=== PATIENT | male | born 1980 | race Caucasian/White ===

== ENCOUNTER 2016-12-20 00:16 | Emergency (ER) | payer MEDICAID ==
[2016-12-20] MEDS ORDERED: PSEUDOEPHEDRINE 30 MG TABLET PO STA (00:37)
[2016-12-20] MEDS ORDERED: DEXAMETHASONE 10 MG/ML VIAL PO STA (00:37)
[2016-12-20] MEDS ORDERED: ACETAMINOPHEN 500 MG TABLET PO STA (00:37)
[2016-12-20] MEDS ORDERED: PSEUDOEPHEDRINE 30 MG TABLET PO ONE (00:42)
[2016-12-20] MEDS ORDERED: DEXAMETHASONE 10 MG/ML VIAL ONE (00:42)
[2016-12-20] MEDS ORDERED: ACETAMINOPHEN 500 MG TABLET PO ONE (00:42)
[2016-12-20] MEDS ORDERED: CHERRY SYRUP 10 ML UDC PO ONE (00:42)
== END 2016-12-20 00:57 | disposition home or self-care (01) ==
DX: J06.9 Acute upper respiratory infection, unspecified (principal)
CPT/HCPCS: 99283; A9270

== ENCOUNTER 2018-01-20 22:43 | Emergency (ER) | payer MEDICAID ==
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
--- NOTE | 2018-01-21 03:20 | XRAY Preliminary Report ---
Exam: XR HIP W/PELVIS 2-3V RT IMPRESSION: Normal pelvis and hip radiography. [facility] SITE ID: [id number]
--- NOTE | 2018-01-21 03:21 | XRAY Report ---
EXAM: RIGHT HIP AND PELVIS RADIOGRAPHY EXAM DATE: 01/21/2018 03:03 AM. HISTORY: Injury, pain. COMPARISONS: None. TECHNIQUE: 1 view of the pelvis and 1 view of the hip. FINDINGS: Bones: Normal. No fracture or bone lesion. Joints: The bilateral hip, pubis symphysis, and sacroiliac joints are preserved. Soft Tissues: Normal. No soft tissue swelling. IMPRESSION: Normal pelvis and hip radiography. [facility] Referring Provider Line: [phone] SITE ID: [id number]
[2018-01-21] MEDS ORDERED: oxyCOD/ACETAMIN 5 MG/325 MG TABLET PO STA (04:36)
[2018-01-21] MEDS ORDERED: CYCLOBENZAPRINE 10 MG TABLET PO STA (04:38)
[2018-01-21 04:58] VITALS: BP 136/70
== END 2018-01-21 04:53 | disposition home or self-care (01) ==
LOC: ED 22:43
DX: S33.5XXA Sprain of ligaments of lumbar spine, initial encounter (principal); W50.0XXA Accidental hit or strike by another person, initial encounter; J45.909 Unspecified asthma, uncomplicated
CPT/HCPCS: 73502; 99283; A9270

== ENCOUNTER 2018-02-11 20:55 | Emergency (ER) | payer MEDICAID ==
[2018-02-12] MEDS ORDERED: DEXAMETHASONE 10 MG/ML VIAL PO STA (00:21)
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
[2018-02-12 00:49] VITALS: BP 116/77
== END 2018-02-12 00:45 | disposition home or self-care (01) ==
LOC: ED 20:55
DX: M62.830 Muscle spasm of back (principal); V49.40XA Driver injured in collision with unspecified motor vehicles in traffic accident, initial encounter; Z88.8 Allergy status to other drugs, medicaments and biological substances
CPT/HCPCS: 99283

== ENCOUNTER 2019-01-05 18:47 | Emergency (ER) | payer MEDICAID ==
[2019-01-05] MEDS ORDERED: ONDANSETRON 4 MG/2 ML VIAL IVP STA (19:17)
[2019-01-05] MEDS ORDERED: HYDROmorphone 1 MG/ML CARPUJECT IVP STA (19:17)
[2019-01-05] MEDS ORDERED: SODIUM CHLORIDE 0.9% 1,000 ML IV ONE (19:17)
--- NOTE | 2019-01-05 19:18 | ED Physician Documentation ---
PD HPI HEADACHE - Stated complaint Stated Complaint: VOMITING BLOOD - Chief complaint Chief Complaint: Back Pain - History obtained from History obtained from: Patient - History of Present Illness Timing - onset: Today (This is a relatively healthy 38-year-old gentleman with history of back pain. He was in physical therapy today, they just worked on his back, not his neck or head. He had gradual onset right-sided headache after that associated with vomiting and had some blood in the vomit this evening. It was just specks of blood. It is not the worst headache of his life but it is atypical for prior migraines.) Review of Systems Constitutional: denies: Fever, Chills Throat: reports: Reviewed and negative Cardiac: reports: Reviewed and negative Respiratory: reports: Reviewed and negative PD PAST MEDICAL HISTORY - Past Medical History Cardiovascular: None Respiratory: Asthma Endocrine/Autoimmune: None GI: None : None HEENT: None Psych: None Musculoskeletal: None Derm: None - Past Surgical History Past Surgical History: Yes General: Appendectomy - Present Medications Home Medications: Ambulatory Orders Medication Instructions Recorded Confirmed Hydrocodone/Acetaminophen [Vicodin 1 each PO 02/11/18 5-300 mg Tablet] Methocarbamol 750 mg PO 02/11/18 Lidocaine Patch 5% [Lidoderm Patch] 1 each TOP DAILY #14 patch 02/12/18 predniSONE [Prednisone] 40 mg PO DAILY 5 Days tablet 02/12/18 - Allergies Allergies/Adverse Reactions: Allergies Allergy/AdvReac Type Severity Reaction Status Date / Time aspirin Allergy Anaphylaxis Verified 02/11/18 21:04 NSAIDS (Non-Steroidal Allergy Anaphylaxis Verified 02/11/18 21:04 Anti-Inflamma - Social History Does the pt smoke?: No Smoking Status: Never smoker Does the pt drink ETOH?: Yes Does the pt have substance abuse?: No - Immunizations Immunizations are current?: Yes - POLST Patient has POLST: No PD ED PE NORMAL - Vitals Vital signs reviewed: Yes - General General: Alert and oriented X 3, Other (Appears uncomfortable, not actively retching) - HEENT HEENT: PERRL, EOMI - Neck Neck: Supple, no meningeal sign, No bony TTP - Cardiac Cardiac: RRR, No murmur - Respiratory Respiratory: No respiratory distress, Clear bilaterally - Abdomen Abdomen: Normal bowel sounds, Soft, Non tender - Back Back: No CVA TTP, No spinal TTP - Derm Derm: Normal color, Warm and dry - Extremities Extremities: No edema, No calf tenderness / cord - Neuro Neuro: Alert and oriented X 3, Normal speech Results - Vitals Vitals: Vital Signs - 24 hr 01/05/19 01/05/19 18:52 20:52 Temperature 36.6 C 36.9 C Heart Rate 99 88 Respiratory 18 16 Rate Blood Pressure 117/82 H 127/85 H O2 Saturation 100 98 Oxygen O2 Source Room air - Labs Labs: Laboratory Tests 01/05/19 01/05/19 01/05/19 19:28 19:28 19:28 WBC 13.4 H RBC 5.20 Hgb 15.0 Hct 44.1 MCV 84.8 MCH 28.8 MCHC 34.0 RDW 13.1 Plt Count 301 MPV 8.3 Neut # (Auto) 10.9 H Lymph # (Auto) 1.6 Boyle # (Auto) 0.6 Eos # (Auto) 0.1 Baso # (Auto) 0.1 Absolute Nucleated RBC 0.00 Nucleated RBC % 0.0 PT 13.2 H INR 1.2 Sodium 149 H Potassium 3.7 Chloride 98 L Carbon Dioxide 28 Anion Gap 23.0 H BUN 18 Creatinine 1.0 Estimated GFR (MDRD) 84 L Glucose 101 H Calcium 10.8 H Total Bilirubin 0.9 AST 23 ALT 22 Alkaline Phosphatase 76 Total Protein 8.3 H Albumin 5.4 Globulin 2.9 Albumin/Globulin Ratio 1.9 Lipase 24 - Rads (name of study) CTH and CTA Head/neck Radiology: EMP read contemporaneously (normal) PD MEDICAL DECISION MAKING - ED course ED course: This is a 38-year-old gentleman with history of migraines and chronic back pain he presents with a new gradual onset but otherwise atypical right-sided headache with vomiting after physical therapy. Vascular issues considered but ruled out with CT angiography imaging and after medications here he was feeling much better. Departure - Departure Disposition: 01 Home, Self Care Clinical Impression: Headache Qualifiers: Headache type: unspecified Headache chronicity pattern: acute headache Intractability: not intractable Qualified Code(s): R51 - Headache Condition: Good Record reviewed to determine appropriate education?: Yes Instructions: ED Cephalgia Unspecified Comments: Call your doctor to arrange a follow-up appointment, make the next available appointment. In the interim, return anytime if worse or if new symptoms develop. Your blood pressure was elevated today on check into the emergency department. This does not mean that you have hypertension, it is a common phenomenon to come to the emergency department and have elevated blood pressure. I recommend that you see your primary care physician within the week to have it rechecked when you are feeling better.
[2019-01-05] MEDS ORDERED: IOVERSOL 320 100 ML VIAL IVP ONE ×2 (19:29→19:55)
[2019-01-05 19:34] LABS: BASOPHILS # (AUTO) 0.1 10^3/uL (0.0-0.1); BASOPHILS % (AUTO) 0.7 %; EOSINOPHILS # (AUTO) 0.1 10^3/uL (0.0-0.7); EOSINOPHILS % (AUTO) 0.8 %; LYMPHOCYTES # (AUTO) 1.6 10^3/uL (1.5-3.5); LYMPHOCYTES % (AUTO) 12.3 %; MEAN CORPUSCULAR HEMOGLOBIN 28.8 pg (27.0-31.0); MEAN CORPUSCULAR VOLUME 84.8 fL (80.0-94.0); MEAN PLATELET VOLUME 8.3 fL (7.4-11.4); MONOCYTES # (AUTO) 0.6 10^3/uL (0.0-1.0); MONOCYTES % (AUTO) 4.4 %; NEUTROPHILS # (AUTO) 10.9 10^3/uL (1.5-6.6); NEUTROPHILS % (AUTO) 81.8 %; PLT - PLATELET COUNT 301 10^3/uL (130-450); RED CELL DISTRIBUTION WIDTH 13.1 % (12.0-15.0); WHITE BLOOD COUNT 13.4 x10^3/uL (4.8-10.8)
[2019-01-05 19:40] LABS: INR 1.2 (0.8-1.2); PT - PROTHROMBIN TIME 13.2 secs (9.9-12.6)
[2019-01-05 20:09] LABS: ALBUMIN 5.4 g/dL (3.2-5.5); ALBUMIN/GLOBULIN RATIO 1.9 (1.0-2.2); BILIRUBIN,TOTAL 0.9 mg/dL (0.2-1.0); CALCIUM 10.8 mg/dL (8.5-10.3); TOTAL PROTEIN 8.3 g/dL (6.7-8.2)
[2019-01-05] MEDS ORDERED: DEXAMETHASONE 10 MG/ML VIAL IVP STA (20:21)
[2019-01-05] MEDS ORDERED: METOCLOPRAMIDE 10 MG/2 ML VIAL IVP STA (20:21)
--- NOTE | 2019-01-05 20:34 | CT Report ---
Reason: headache Procedure Date: 01/05/2019 Accession Number: [id number] / [id number] Procedure: CT - HEAD WO CPT Code: FULL RESULT: EXAM: CT HEAD EXAM DATE: 01/05/2019 07:52 PM. CLINICAL HISTORY: Headache. Left facial droop. COMPARISON: None. TECHNIQUE: Multiaxial CT images were obtained from the foramen magnum to the vertex. Reformats: Coronal. IV contrast: None. In accordance with CT protocol optimization, one or more of the following dose reduction techniques were utilized for this exam: automated exposure control, adjustment of mA and/or KV based on patient size, or use of iterative reconstructive technique. FINDINGS: Normal CT appearance of the brain. No evidence for hemorrhage, infarct, atrophy or hydrocephalus. Intact calvarium. Maxillary sinus mucosal thickening with retention cyst on the right. Clear mastoids. IMPRESSION: No CT evidence for acute intracranial abnormality. [facility]
--- NOTE | 2019-01-05 20:38 | CT Report ---
Reason: headache Procedure Date: 01/05/2019 Accession Number: [id number] / [id number] Procedure: CT - ANGIO NECK W/WO CPT Code: FULL RESULT: EXAM: CT ANGIOGRAM NECK EXAM DATE: 01/05/2019 07:52 PM. CLINICAL HISTORY: Headache and facial droop. COMPARISON: None. TECHNIQUE: Routine axial helical imaging was performed from the skull base through the aortic arch. Reconstructions: Routine multiplanar 3D MIP reconstructions. IV Contrast: 80 mL Optiray 320. Evaluation of arterial stenosis is based on a NASCET method of measurement. In accordance with CT protocol optimization, one or more of the following dose reduction techniques were utilized for this exam: automated exposure control, adjustment of mA and/or KV based on patient size, or use of iterative reconstructive technique. FINDINGS: The top of the aortic arch and the origins of the great vessels have an unremarkable appearance. Normal CTA appearance of the cervical vertebral and carotid arteries, no acute abnormality or stenosis. IMPRESSION: Normal neck CT angiogram. No hemodynamically significant stenoses. [facility]
--- NOTE | 2019-01-05 20:43 | CT Report ---
Reason: L sided facial droop Procedure Date: 01/05/2019 Accession Number: [id number] / [id number] Procedure: CT - ANGIO HEAD W CPT Code: FULL RESULT: EXAM: CT ANGIOGRAM HEAD. CT SCAN OF THE HEAD WITH CONTRAST. EXAM DATE: 01/05/2019 07:52 PM CLINICAL HISTORY: Headache and left facial droop. COMPARISON: Neck angiogram 01/05/2019 7:46 PM. TECHNIQUE: - CT Scan Head: Using a multidetector scanner, axial images were acquired from the foramen magnum to the skull vertex following contrast administration. - CT Angiogram: Using a multidetector scanner, high-resolution axial images were acquired from the skull base through vertex following rapid infusion of intravenous contrast. Reformats: Multiplanar MIP reformats were reconstructed. Nascet criteria used for stenosis measurement. IV Contrast: 80 mL Optiray-320. In accordance with CT protocol optimization, one or more of the following dose reduction techniques were utilized for this exam: automated exposure control, adjustment of mA and/or KV based on patient size, or use of iterative reconstructive technique. FINDINGS: Brain CT with IV contrast: No abnormal brain enhancement. Head CT angiogram: No intracranial vertebrobasilar insufficiency. Probable origin of the right REFUSE DRIVER. Well-developed left posterior communicating artery. Patent anterior communicating artery. 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 No proximal flow limiting stenosis, occlusion or filling defect of the main segments of the anterior, middle or posterior cerebral arteries. No evidence for major dural venous sinus thrombus or aneurysm of the [place] of [place]. IMPRESSION: Negative head CTA, no evidence for aneurysm or stenosis. No large vessel occlusion. Note that this does not preclude the possibility of a small or acute ischemic infarct for which a brain MRI would be more sensitive. [facility]
[2019-01-05 21:56] VITALS: BP 134/81
== END 2019-01-05 22:05 | disposition home or self-care (01) ==
LOC: ED 18:47
DX: R51 Headache (principal); R11.10 Vomiting, unspecified; R03.0 Elevated blood-pressure reading, without diagnosis of hypertension; M54.9 Dorsalgia, unspecified; G89.29 Other chronic pain
CPT/HCPCS: 36415; 70450; 70496; 70498; 80053; 83690; 85025; 85610; 96361; 96374; 96375; 99283; J1170; J2765; Q9967

== ENCOUNTER 2020-02-28 19:20 | Outpatient (CLI) | payer MEDICAID | END 2020-02-28 19:21 | disposition home or self-care (01) | LOC: COV 19:20 | PROVIDERS: ATTEND Family Medicine | DX: R50.9 Fever, unspecified (principal); R05 Cough; R06.02 Shortness of breath; R06.2 Wheezing; J02.9 Acute pharyngitis, unspecified | CPT/HCPCS: 81599 ==

== ENCOUNTER 2021-01-10 07:34 | Outpatient (CLI) | payer MEDICAID ==
[2021-01-10 08:14] LABS: BASOPHILS # (AUTO) 0.1 10^3/uL (0.0-0.1); BASOPHILS % (AUTO) 0.5 %; EOSINOPHILS # (AUTO) 0.4 10^3/uL (0.0-0.7); EOSINOPHILS % (AUTO) 4.6 %; HCT - HEMATOCRIT 45.6 % (42.0-52.0); HGB - HEMOGLOBIN 15.7 g/dL (14.0-18.0); LYMPHOCYTES # (AUTO) 3.1 10^3/uL (1.5-3.5); LYMPHOCYTES % (AUTO) 33.2 %; MEAN CORPUSCULAR HEMOGLOBIN 29.5 pg (27.0-31.0); MEAN CORPUSCULAR HGB CONC 34.4 g/dL (32.0-36.0); MEAN CORPUSCULAR VOLUME 85.7 fL (80.0-94.0); MONOCYTES # (AUTO) 0.7 10^3/uL (0.0-1.0); NEUTROPHILS # (AUTO) 4.9 10^3/uL (1.5-6.6); NEUTROPHILS % (AUTO) 53.4 %; PLT - PLATELET COUNT 279 10^3/uL (130-450); RED BLOOD COUNT 5.32 10^6/uL (4.70-6.10); RED CELL DISTRIBUTION WIDTH 11.9 % (12.0-15.0); WHITE BLOOD COUNT 9.3 x10^3/uL (4.8-10.8)
[2021-01-10 08:32] LABS: ALBUMIN 4.7 g/dL (3.2-5.5); ALBUMIN/GLOBULIN RATIO 1.6 (1.0-2.2); ALKALINE PHOSPHATASE 88 IU/L (42-121); ALT ALANINE AMINOTRANSFERASE 36 IU/L (10-60); AST ASPARTATE AMINOTRANSFERASE 29 IU/L (10-42); BILIRUBIN,TOTAL 0.4 mg/dL (0.2-1.0); BUN - BLOOD UREA NITROGEN 17 mg/dL (6-20); CALCIUM 10.4 mg/dL (8.5-10.3); CARBON DIOXIDE - CO2 27 mmol/L (21-32); CHLORIDE 103 mmol/L (101-111); CHOL/HDL RATIO 9.1 (<5.0); CHOLESTEROL 273 mg/dL; GFR - MDRD 83 (>89); GLUCOSE 107 mg/dL (70-100); HDL CHOLESTEROL 30 mg/dL; LDL CHOLESTEROL,CALCULATED 193 mg/dL; LDL/HDL RATIO 6.4 (<3.6); POTASSIUM 4.2 mmol/L (3.5-5.0); SODIUM 140 mmol/L (135-145); TOTAL PROTEIN 7.6 g/dL (6.7-8.2); TRIGLYCERIDES 251 mg/dL; VLDL CHOLESTEROL 50 mg/dL
[2021-01-10 09:18] LABS: THYROID STIMULATING HORMONE 1.11 uIU/mL (0.34-5.60)
== END 2021-01-10 07:35 | disposition home or self-care (01) ==
LOC: LAB 07:34
PROVIDERS: ATTEND Physician Assistant
DX: F41.1 Generalized anxiety disorder (principal); F07.81 Postconcussional syndrome; Z79.899 Other long term (current) drug therapy
CPT/HCPCS: 36415; 80053; 80061; 83721; 84443; 85025

== ENCOUNTER 2021-06-05 08:00 | Outpatient (CLI) | payer MEDICAID | END 2021-06-05 23:59 | disposition home or self-care (01) | LOC: LAB.S 08:00 | PROVIDERS: ATTEND Physician Assistant | DX: R05 Cough (principal); Z20.822 Contact with and (suspected) exposure to COVID-19 ==

== ENCOUNTER 2021-06-05 18:21 | Outpatient (CLI) | payer MEDICAID | END 2021-06-05 18:22 | disposition critical access hospital (66) | LOC: EMS 18:21 | DX: R06.00 Dyspnea, unspecified (principal) | CPT/HCPCS: A0425; A0427; A0999 ==

== ENCOUNTER 2021-06-05 18:51 | Emergency (ER) | payer MEDICAID ==
[2021-06-05] MEDS ORDERED: ALBUTEROL NEB 2.5 MG/3 ML INH STA (19:00)
[2021-06-05] MEDS ORDERED: MAGNESIUM SULFATE 2 GRAM 2 GM/50 ML BAG IV ONE (19:00)
[2021-06-05] MEDS ORDERED: HALOPERIDOL 5 MG/ML VIAL IVP ONE (19:08)
[2021-06-05] MEDS ORDERED: DEXAMETHASONE 10 MG/ML VIAL IVP STA (19:08)
--- NOTE | 2021-06-05 19:08 | ED Physician Documentation ---
PD HPI DYSPNEA - Stated complaint Stated Complaint: SOA/ CONGESTION - Chief complaint Chief Complaint: Resp - History obtained from History obtained from: Patient, Family, EMS - Additional information Additional information: 41-year-old gentleman with history of asthma has been sick for a week. He also has a strong history of mental health issues. Reportedly just got very short of breath today with a lot of wheezing. Has never been hypoxic. On arrival he had 1 albuterol nebulizer at the urgent care who did call ahead and has had 2 DuoNeb's in route. There is some concern that steroids have made him psychotic in the past. He has been out of his inhaler recently. Review of Systems Ten Systems: 10 systems reviewed and negative Constitutional: denies: Fever, Chills Cardiac: reports: Chest pain / pressure. denies: Palpitations Respiratory: reports: Dyspnea, Cough PD PAST MEDICAL HISTORY - Past Medical History Cardiovascular: None Respiratory: Asthma Endocrine/Autoimmune: None GI: None : None HEENT: None Psych: Anxiety Musculoskeletal: Chronic back pain Derm: None - Past Surgical History Past Surgical History: Yes General: Appendectomy - Present Medications Home Medications: Ambulatory Orders Medication Instructions Recorded Confirmed DULoxetine [Cymbalta] 30 mg PO DAILY 06/14/20 06/14/20 Gabapentin 600 mg PO QPM 06/14/20 06/14/20 diazePAM [Valium] 5 mg PO TID PRN #15 tablet 06/14/20 diphenhydrAMINE [Benadryl] 25 mg PO DAILY PRN 06/14/20 06/14/20 Albuterol Sulf [Ventolin Hfa 1 - 2 puffs INH Q4HR PRN #1 inhaler 06/05/21 Inhaler] - Allergies Allergies/Adverse Reactions: Allergies Allergy/AdvReac Type Severity Reaction Status Date / Time aspirin Allergy Anaphylaxis Verified 06/05/21 19:02 NSAIDS (Non-Steroidal Allergy Anaphylaxis Verified 06/05/21 19:02 Anti-Inflamma - Social History Does the pt smoke?: No Smoking Status: Never smoker Does the pt drink ETOH?: Yes Does the pt have substance abuse?: No - Immunizations Immunizations are current?: Yes - POLST Patient has POLST: No PD ED PE NORMAL - Vitals Vital signs reviewed: Yes - General General: Alert and oriented X 3, Other (Coughing, restless, looks scared) - HEENT HEENT: PERRL, EOMI - Neck Neck: Supple, no meningeal sign, No bony TTP - Cardiac Cardiac: Other (Tachycardic but regular without murmur) - Respiratory Respiratory: Other (Tachypneic with decreased lung sounds throughout, what I would call a moderate air motion with expiratory wheezes.) - Abdomen Abdomen: Normal bowel sounds, Soft, Non tender - Back Back: No CVA TTP, No spinal TTP - Derm Derm: Normal color, Warm and dry - Extremities Extremities: No edema, No calf tenderness / cord - Neuro Neuro: Alert and oriented X 3, Normal speech - Psych Psych: Other (Agitated and restless) Results - Vitals Vitals: Vital Signs - 24 hr 06/05/21 06/05/21 06/05/21 19:02 19:13 20:32 Temperature 37.2 C Heart Rate 97 107 H 105 H Respiratory 20 14 12 Rate Blood Pressure 143/95 H 136/86 H O2 Saturation 99 99 Oxygen O2 Source Room air Oxygen Flow Rate 2 - Labs Labs: Laboratory Tests 06/05/21 06/05/21 06/05/21 19:25 19:25 19:25 WBC 15.1 H RBC 5.33 Hgb 15.6 Hct 44.2 MCV 82.9 MCH 29.3 MCHC 35.3 RDW 12.0 Plt Count 320 MPV 10.3 Neut # (Auto) 10.5 H Lymph # (Auto) 3.2 Erath # (Auto) 1.0 Eos # (Auto) 0.2 Baso # (Auto) 0.1 Absolute Nucleated RBC 0.00 Nucleated RBC % 0.0 VBG pH 7.701 H VBG pCO2 16.7 L VBG pO2 50.9 H VBG HCO3 20.2 L VBG Total CO2 20.7 L VBG O2 Saturation 94.5 H VBG Base Excess 3.7 H Sodium 141 Potassium 3.4 L Chloride 107 Carbon Dioxide 18 L Anion Gap 16.0 H BUN 17 Creatinine 1.2 Estimated GFR (MDRD) 67 L Glucose 106 H Calcium 9.9 Phosphorus < 1.0 L* Magnesium 1.8 Nasal Adenovirus (PCR) Nasal B. parapertussis DNA (PCR) Nasal Coronavir 229E PCR Nasal Coronavir HKU1 PCR Nasal Coronavir NL63 PCR Nasal Coronavir OC43 PCR Nasal Enterovir/Rhinovir PCR Nasal Influenza B PCR Nasal Influenza A PCR Nasal Parainfluen 1 PCR Nasal Parainfluen 2 PCR Nasal Parainfluen 3 PCR Nasal Parainfluen 4 PCR Nasal RSV (PCR) Nasal B.pertussis DNA PCR Nasal C.pneumoniae (PCR) Jarrell Human Metapneumo PCR Nasal M.pneumoniae (PCR) Nasal SARS-CoV-2 (PCR) 06/05/21 19:45 WBC RBC Hgb Hct MCV MCH MCHC RDW Plt Count MPV Neut # (Auto) Lymph # (Auto) Erath # (Auto) Eos # (Auto) Baso # (Auto) Absolute Nucleated RBC Nucleated RBC % VBG pH VBG pCO2 VBG pO2 VBG HCO3 VBG Total CO2 VBG O2 Saturation VBG Base Excess Sodium Potassium Chloride Carbon Dioxide Anion Gap BUN Creatinine Estimated GFR (MDRD) Glucose Calcium Phosphorus Magnesium Nasal Adenovirus (PCR) NOT DETECTED Nasal B. parapertussis DNA (PCR) NOT DETECTED Nasal Coronavir 229E PCR NOT DETECTED Nasal Coronavir HKU1 PCR NOT DETECTED Nasal Coronavir NL63 PCR NOT DETECTED Nasal Coronavir OC43 PCR NOT DETECTED Nasal Enterovir/Rhinovir PCR DETECTED A Nasal Influenza B PCR NOT DETECTED Nasal Influenza A PCR NOT DETECTED Nasal Parainfluen 1 PCR NOT DETECTED Nasal Parainfluen 2 PCR NOT DETECTED Nasal Parainfluen 3 PCR NOT DETECTED Nasal Parainfluen 4 PCR NOT DETECTED Nasal RSV (PCR) NOT DETECTED Nasal B.pertussis DNA PCR NOT DETECTED Nasal C.pneumoniae (PCR) NOT DETECTED Jarrell Human Metapneumo PCR NOT DETECTED Nasal M.pneumoniae (PCR) NOT DETECTED Nasal SARS-CoV-2 (PCR) NOT DETECTED - Rads (name of study) 1v cxr Radiology: EMP read contemporaneously (normal) PD MEDICAL DECISION MAKING - ED course ED course: 41-year-old gentleman is presents with status asthmaticus. Here after discussion with him and his he was administered steroids even though in the past he has had mental health issues, but he was in extremis. We also gave him some Haldol for the anxiety and 10 mg of albuterol. A magnesium drip as well. After the above interventions, he was doing much much better, his lungs were clear. Given how ill he was when he got here he was observed for a prolonged period of time after the cessation of therapy to make sure he did not relapse and he did not. Lab work noted, he had a significant hyperventilation pattern on venous blood gas and hypophosphatemia that should resolve without specific treatments given that his respiratory distress has completely resolved. - Critical Care Time(min): 40 Time Includes: Direct patient care, Review records, Reassess patient, Document care, Coordinate care, Family consult for tx dec Data interpretation: Labs, Pulse ox Procedures included in critical care time: Peripheral IV Departure - Departure Disposition: 01 Home, Self Care Clinical Impression: Status asthmaticus Qualifiers: Asthma severity: moderate Asthma persistence: persistent Qualified Code(s): J45.42 - Moderate persistent asthma with status asthmaticus Condition: Good Record reviewed to determine appropriate education?: Yes Instructions: Asthma Dc Prescriptions: Albuterol Sulf [Ventolin Hfa Inhaler] 1 - 2 puffs INH Q4HR PRN #1 inhaler PRN Reason: Shortness Of Air/Wheezing Comments: Call your doctor to arrange a follow-up appointment, make the next available appointment. In the interim, return anytime if worse or if new symptoms develop. Discharge Date/Time: 06/05/21 21:24
[2021-06-05 19:29] LABS: BASOPHILS # (AUTO) 0.1 10^3/uL (0.0-0.1); BASOPHILS % (AUTO) 0.4 %; EOSINOPHILS # (AUTO) 0.2 10^3/uL (0.0-0.7); EOSINOPHILS % (AUTO) 1.3 %; HCT - HEMATOCRIT 44.2 % (42.0-52.0); HGB - HEMOGLOBIN 15.6 g/dL (14.0-18.0); LYMPHOCYTES # (AUTO) 3.2 10^3/uL (1.5-3.5); LYMPHOCYTES % (AUTO) 21.5 %; MEAN CORPUSCULAR HEMOGLOBIN 29.3 pg (27.0-31.0); MEAN CORPUSCULAR HGB CONC 35.3 g/dL (32.0-36.0); MEAN CORPUSCULAR VOLUME 82.9 fL (80.0-94.0); MEAN PLATELET VOLUME 10.3 fL (7.4-11.4); MONOCYTES % (AUTO) 6.6 %; NEUTROPHILS # (AUTO) 10.5 10^3/uL (1.5-6.6); NEUTROPHILS % (AUTO) 69.9 %; PLT - PLATELET COUNT 320 10^3/uL (130-450); RED BLOOD COUNT 5.33 10^6/uL (4.70-6.10); VBG PH 7.701 (7.31-7.41); WHITE BLOOD COUNT 15.1 x10^3/uL (4.8-10.8)
[2021-06-05 19:30] LABS: VBG BASE EXCESS 3.7 mmol/L (-2 - +2); VBG HCO3 20.2 mmol/L (23-28); VBG OXYGEN SATURATION 94.5 % (60-80); VBG PCO2 16.7 mmHg (41-51); VBG PO2 50.9 mmHg (25-47); VBG TOTAL CO2 20.7 mmol/L (24-29)
[2021-06-05 19:48] LABS: BUN - BLOOD UREA NITROGEN 17 mg/dL (6-20); CALCIUM 9.9 mg/dL (8.5-10.3); CARBON DIOXIDE - CO2 18 mmol/L (21-32); CHLORIDE 107 mmol/L (101-111); CREATININE 1.2 mg/dL (0.6-1.2); GFR - MDRD 67 (>89); GLUCOSE 106 mg/dL (70-100); MAGNESIUM 1.8 mg/dL (1.7-2.8); POTASSIUM 3.4 mmol/L (3.5-5.0); SODIUM 141 mmol/L (135-145)
[2021-06-05 19:51] LABS: PHOSPHORUS < 1.0 mg/dL (2.5-4.6)
[2021-06-05] MEDS ORDERED: QUEtiapine 100 MG TABLET PO STA (19:57)
[2021-06-05 20:32] VITALS: BP 136/86
[2021-06-05 20:50] LABS: B. PARAPERTUSSIS- RESP PCR PAN NOT DETECTED; B. PERTUSSIS- RESP PCR PANEL NOT DETECTED; C. PNEUMONIAE- RESP PCR PANEL NOT DETECTED; CORONAVIRUS 229E-RESP PCR NOT DETECTED; CORONAVIRUS HKU1-RESP PCR NOT DETECTED; CORONAVIRUS NL63-RESP PCR NOT DETECTED; CORONAVIRUS OC43-RESP PCR NOT DETECTED; HUMAN METAPNEUMOVIRUS NOT DETECTED; INFLUENZA A- RESP PCR PANEL NOT DETECTED; INFLUENZA B - RESP PCR PANEL NOT DETECTED; M. PNEUMONIAE- RESP PCR PANEL NOT DETECTED; PARAINFLUENZA VIRUS 1 NOT DETECTED; PARAINFLUENZA VIRUS 2 NOT DETECTED; PARAINFLUENZA VIRUS 3 NOT DETECTED; PARAINFLUENZA VIRUS 4 NOT DETECTED; RHINOVIRUS/ENTEROVIRUS DETECTED; RSV- RESP PCR PANEL NOT DETECTED; SARS-CoV-2 -RESP PCR PANEL NOT DETECTED
--- NOTE | 2021-06-05 21:23 | XRAY Report ---
PROCEDURE: Chest 1 View X-Ray INDICATIONS: dyspnea TECHNIQUE: One view of the chest was acquired. COMPARISON: 10/05/2014. FINDINGS: Surgical changes and devices: None. Lungs and pleura: No pleural effusions or pneumothorax. Lungs are clear. Mediastinum: Mediastinal contours appear normal. Heart size is normal. Bones and chest wall: No suspicious bony lesions. Overlying soft tissues appear unremarkable. IMPRESSION: No acute cardiopulmonary pathology. Reviewed by: Reji Loco MD on 06/05/2021 9:22 PM PDT Approved by: Reji Loco MD on 06/05/2021 9:22 PM PDT Station ID: [id number]
== END 2021-06-05 21:24 | disposition home or self-care (01) ==
LOC: EDUNIT# → ED 18:51
DX: J45.42 Moderate persistent asthma with status asthmaticus (principal); E83.39 Other disorders of phosphorus metabolism; F41.9 Anxiety disorder, unspecified; Z20.822 Contact with and (suspected) exposure to COVID-19
CPT/HCPCS: 0202U; 36415; 71045; 80048; 82803; 83735; 84100; 85025; 94640; 96365; 96375; 99284; 99291; A9270

== ENCOUNTER 2021-10-26 10:56 | Emergency (ER) | payer MEDICAID ==
[2021-10-26] MEDS ORDERED: HYDROmorphone 1 MG/ML CARPUJECT IM STA (11:29)
--- NOTE | 2021-10-26 11:32 | ED Physician Documentation ---
History of Present Illness - Stated complaint Stated Complaint: LT INDEX FINGER INJ - Chief complaint Chief Complaint: Trauma Ext - Additonal information Additional information: 41-year-old male presents emergency department for evaluation of acute left index finger injury. His finger was trapped between a trailer hitch on the ball of the truck this afternoon. There is no laceration but significant tenderness and difficulty moving the digit from the PIP and DIP joints. Patient is right- hand dominant. Review of Systems Constitutional: denies: Fever, Chills Nose: reports: Reviewed and negative Throat: reports: Reviewed and negative Cardiac: reports: Reviewed and negative Respiratory: reports: Reviewed and negative GI: reports: Reviewed and negative Skin: denies: Rash, Lesions, Abrasion (s), Laceration (s) Musculoskeletal: reports: Joint pain (left index finger) PD PAST MEDICAL HISTORY - Past Medical History Cardiovascular: None Respiratory: Asthma Endocrine/Autoimmune: None GI: None : None HEENT: None Psych: Anxiety Musculoskeletal: Chronic back pain Derm: None - Past Surgical History Past Surgical History: Yes General: Appendectomy - Present Medications Home Medications: Ambulatory Orders Medication Instructions Recorded Confirmed DULoxetine [Cymbalta] 30 mg PO DAILY 06/14/20 06/14/20 Gabapentin 600 mg PO QPM 06/14/20 06/14/20 diazePAM [Valium] 5 mg PO TID PRN #15 tablet 06/14/20 diphenhydrAMINE [Benadryl] 25 mg PO DAILY PRN 06/14/20 06/14/20 Albuterol Sulf [Ventolin Hfa 1 - 2 puffs INH Q4HR PRN #1 inhaler 06/05/21 Inhaler] HYDROcod/ACETAM 5/325 [[place] 5/325] 1 tablet PO BID PRN #10 tablet 10/26/21 - Allergies Allergies/Adverse Reactions: Allergies Allergy/AdvReac Type Severity Reaction Status Date / Time aspirin Allergy Anaphylaxis Verified 10/26/21 11:03 NSAIDS (Non-Steroidal Allergy Anaphylaxis Verified 10/26/21 11:03 Anti-Inflamma - Social History Does the pt smoke?: No Smoking Status: Never smoker Does the pt drink ETOH?: Yes Does the pt have substance abuse?: No - Immunizations Immunizations are current?: Yes - POLST Patient has POLST: No PD ED PE EXPANDED - General General: Alert, No acute distress - Extremities Extremities: Left finger(s) (swellign and ecchymosis left index finger PIP distally. minimal flexion/extension noted distally at PIP and DIP joint. Warm, well perfused. + sensation distally. No deformity. Brisk cap refill) Results - Vitals Vitals: Vital Signs - 24 hr 10/26/21 11:00 Temperature 36.7 C Heart Rate 106 H Respiratory 17 Rate Blood Pressure 139/88 H O2 Saturation 98 Oxygen O2 Source Room air - Rads (name of study) finger left Radiology: Final report received (no acute fracture or dislocation) PD MEDICAL DECISION MAKING - ED course Complexity details: reviewed results, re-evaluated patient, d/w patient ED course: 41-year-old male presents emergency department for evaluation acute left index finger injury. It was trapped between a trailer hitch in the ball of his vehicle. There is no laceration or obvious deformity however due to pain and swelling patient is unable to significantly flex or extend at the PIP and DIP joints. X-ray does not show an obvious fracture. digit is warm and well perfused. sat 98% of this finger I do question whether there is a tendon injury given his lack of movement that did not improve after analgesia. In the short-term patient will be placed in extension splinting and advised follow-up with hand surgery if not markedly better in 4 to 7 days. I will prescribe a limited amount of hydrocodone for analgesia. Patient has an allergy to aspirin and thus cannot take NSAIDs. I am prescribing a short course of short-acting opioid pain medication for this patient. I have reviewed the patients COLD HEADER and no concerning findings were noted. I have discussed that the opioids are for short term therapy only, and will not be refilled from the ED. Departure - Departure Disposition: 01 Home, Self Care Clinical Impression: Crushing injury of index finger Condition: Stable Record reviewed to determine appropriate education?: Yes Instructions: ED Contusion Hand Ch Follow-Up: JAYLENE AVILA [Physician No Access] - Prescriptions: HYDROcod/ACETAM 5/325 [[place] 5/325] 1 tablet PO BID PRN #10 tablet PRN Reason: Pain Comments: Trever were seen today in the ER because your finger was trapped between the trailer hitch and the ball of the vehicle. The x-ray does not show an obvious broken bone. You are having difficulty moving your finger at the middle and distal knuckle. This may simply be due to inflammation and swelling however there is a possibility that you have injured the tendons in the finger limiting your movement. I encourage you to keep your finger in the extension splint for the next 4 to 5 days. Elevate your finger as much as possible. You can ice the finger for 10 minutes every few hours. If pain and swelling does not markedly improve your ability to move this digit you may need to be seen by a hand surgeon. I have given you the phone number of Dr. Jaylene Avila a hand specialist in [place] with [facility]. If at any point you lose sensation in this finger, becomes discolored, cool to the touch we develop any fevers then please return immediately to the ER for a second evaluation. I am prescribing a short course of narcotic pain medication for you. These are potentially dangerous and addictive medications that should be used carefully. These medications may constipate you. Take an [id number] stool softener (docusate) twice daily with plenty of water while taking these medications. If you go 24 hours without a bowel movement, take [id number] miralax, per package instructions. Do not drink or drive while taking these medications. If you received narcotic or sedating medications while in the emergency department, do not drive for 24 hours. Store this medication in a safe, secure place and out of reach of children. It is a violation of federal law to give or sell this medication to another person or to use in a manner other than prescribed. The ED will not refill narcotic prescriptions, including prescriptions lost or stolen. To dispose of unwanted medications: 1. [facility] at [address] in [place] has a medication drop box. They accept prescription medications (in pill form) Friday through Friday 9:00 a.m. to 5:00 p.m. 2. [facility] [employer] accepts prescription medications (in pill form only) for disposal year round. Call for more information. 3. Contact the [facility] for the next [facility] sponsored prescription drug collection event. , [phone], or [phone]; Note that many narcotic pain relievers also contain Tylenol/acetaminophen. Please ensure that your total dose of acetaminophen from all sources does not exceed 3 g (3000 mg) per day.
--- NOTE | 2021-10-26 11:44 | XRAY Report ---
PROCEDURE: Finger(s) LT INDICATIONS: Smashed L pointer finger, injury TECHNIQUE: AP hand, 2 views of the second finger(s) acquired. COMPARISON: None FINDINGS: Bones: No fractures or dislocations. No suspicious bony lesions. Soft tissues: No suspicious soft tissue calcifications. IMPRESSION: No acute second finger fracture or dislocation. Reviewed by: Reji Loco MD on 10/26/2021 11:42 AM [facility] Approved by: Reji Loco MD on 10/26/2021 11:42 AM [facility] Station ID: [id number]
[2021-10-26 12:16] VITALS: BP 141/93
== END 2021-10-26 12:19 | disposition home or self-care (01) ==
LOC: ED 10:56
DX: S67.191A Crushing injury of left index finger, initial encounter (principal); W23.0XXA Caught, crushed, jammed, or pinched between moving objects, initial encounter; Z88.6 Allergy status to analgesic agent
CPT/HCPCS: 73140; 96372; 99283; J1170

== ENCOUNTER 2022-02-27 09:35 | Outpatient (CLI) | payer MEDICAID ==
[2022-02-27 10:05] LABS: ALBUMIN 4.6 g/dL (3.2-5.5); ALBUMIN/GLOBULIN RATIO 1.6 (1.0-2.2); ALKALINE PHOSPHATASE 88 IU/L (42-121); ALT ALANINE AMINOTRANSFERASE 36 IU/L (10-60); AST ASPARTATE AMINOTRANSFERASE 25 IU/L (10-42); BILIRUBIN,TOTAL 0.8 mg/dL (0.2-1.0); BUN - BLOOD UREA NITROGEN 14 mg/dL (6-20); CALCIUM 9.6 mg/dL (8.5-10.3); CARBON DIOXIDE - CO2 27 mmol/L (21-32); CHLORIDE 101 mmol/L (101-111); CHOL/HDL RATIO 8.2 (<5.0); CHOLESTEROL 280 mg/dL; GFR - MDRD 83 (>89); GLUCOSE 101 mg/dL (70-100); HDL CHOLESTEROL 34 mg/dL; LDL CHOLESTEROL,CALCULATED 180 mg/dL; LDL/HDL RATIO 5.3 (<3.6); POTASSIUM 4.4 mmol/L (3.5-5.0); SODIUM 136 mmol/L (135-145); TOTAL PROTEIN 7.5 g/dL (6.7-8.2); TRIGLYCERIDES 329 mg/dL; VLDL CHOLESTEROL 66 mg/dL
== END 2022-02-27 09:36 | disposition home or self-care (01) ==
LOC: LAB 09:35
PROVIDERS: ATTEND Psychiatry & Neurology Psychiatry
DX: Z79.899 Other long term (current) drug therapy (principal)
CPT/HCPCS: 36415; 80053; 80061; 81599; 83036; 83721

== ENCOUNTER 2022-07-05 08:00 | Outpatient (CLI) | payer MEDICAID ==
--- NOTE | 2022-07-06 18:08 | XRAY Report ---
PROCEDURE: Foot 2 View RT INDICATIONS: RIGHT FOOT PAIN TECHNIQUE: 2 views of the foot were acquired. COMPARISON: None FINDINGS: Bones: No fractures or dislocations. No suspicious bony lesions. Mild lateral deviation of the fifth ray can be seen. Soft tissues: No tibiotalar joint effusion. Achilles tendon appears normal. IMPRESSION: Mild lateral deviation of the fifth ray is seen. Otherwise, normal plain films. Reviewed by: Trever Flores MD on 07/06/2022 5:07 PM [facility] Approved by: Trever Flores MD on 07/06/2022 5:07 PM [facility] Station ID: [id number]
== END 2022-07-05 23:59 | disposition home or self-care (01) ==
LOC: DI.S 08:00
PROVIDERS: ATTEND Registered Nurse
DX: M79.671 Pain in right foot (principal)

== ENCOUNTER 2022-07-31 07:59 | Outpatient (CLI) | payer MEDICAID ==
[2022-07-31 08:17] LABS: BASOPHILS # (AUTO) 0.1 10^3/uL (0.0-0.1); BASOPHILS % (AUTO) 0.6 %; EOSINOPHILS # (AUTO) 0.4 10^3/uL (0.0-0.7); EOSINOPHILS % (AUTO) 3.9 %; HCT - HEMATOCRIT 44.7 % (42.0-52.0); HGB - HEMOGLOBIN 15.6 g/dL (14.0-18.0); LYMPHOCYTES # (AUTO) 3.3 10^3/uL (1.5-3.5); LYMPHOCYTES % (AUTO) 31.9 %; MEAN CORPUSCULAR HEMOGLOBIN 29.4 pg (27.0-31.0); MEAN CORPUSCULAR HGB CONC 34.9 g/dL (32.0-36.0); MEAN CORPUSCULAR VOLUME 84.3 fL (80.0-94.0); MEAN PLATELET VOLUME 10.2 fL (7.4-11.4); MONOCYTES # (AUTO) 0.6 10^3/uL (0.0-1.0); MONOCYTES % (AUTO) 5.8 %; NEUTROPHILS # (AUTO) 5.9 10^3/uL (1.5-6.6); NEUTROPHILS % (AUTO) 57.5 %; PLT - PLATELET COUNT 298 10^3/uL (130-450); RED CELL DISTRIBUTION WIDTH 12.3 % (12.0-15.0); WHITE BLOOD COUNT 10.3 x10^3/uL (4.8-10.8)
[2022-07-31 08:37] LABS: ALBUMIN 4.5 g/dL (3.2-5.5); ALBUMIN/GLOBULIN RATIO 1.6 (1.0-2.2); ALKALINE PHOSPHATASE 102 IU/L (42-121); ALT ALANINE AMINOTRANSFERASE 39 IU/L (10-60); AST ASPARTATE AMINOTRANSFERASE 24 IU/L (10-42); BILIRUBIN,TOTAL 0.3 mg/dL (0.2-1.0); BUN - BLOOD UREA NITROGEN 25 mg/dL (6-20); CALCIUM 9.8 mg/dL (8.5-10.3); CARBON DIOXIDE - CO2 26 mmol/L (21-32); CHLORIDE 104 mmol/L (101-111); CHOLESTEROL 272 mg/dL; CREATININE 1.1 mg/dL (0.6-1.2); GFR - MDRD 74 (>89); GLUCOSE 143 mg/dL (70-100); POTASSIUM 4.1 mmol/L (3.5-5.0); SODIUM 139 mmol/L (135-145); TOTAL PROTEIN 7.3 g/dL (6.7-8.2); TRIGLYCERIDES 738 mg/dL
[2022-07-31 08:38] LABS: CHOL/HDL RATIO 9.7 (<5.0); HDL CHOLESTEROL 28 mg/dL
[2022-07-31 08:46] LABS: THYROID STIMULATING HORMONE 0.89 uIU/mL (0.34-5.60)
[2022-07-31 11:15] LABS: LDL CHOLESTEROL,DIRECT 160 mg/dL; LDLD/HDL RATIO 5.7 (<3.6)
== END 2022-07-31 08:00 | disposition home or self-care (01) ==
LOC: LAB 07:59
PROVIDERS: ATTEND Registered Nurse
DX: E78.5 Hyperlipidemia, unspecified (principal); Z76.89 Persons encountering health services in other specified circumstances; Z12.5 Encounter for screening for malignant neoplasm of prostate; Z13.29 Encounter for screening for other suspected endocrine disorder
CPT/HCPCS: 36415; 80053; 80061; 83721; 84153; 84443; 85025

== ENCOUNTER 2022-08-22 07:32 | Outpatient (CLI) | payer MEDICAID ==
[2022-08-22 15:30] LABS: ALBUMIN 4.4 g/dL (3.2-5.5); ALBUMIN/GLOBULIN RATIO 1.7 (1.0-2.2); ALKALINE PHOSPHATASE 87 IU/L (42-121); ALT ALANINE AMINOTRANSFERASE 36 IU/L (10-60); AST ASPARTATE AMINOTRANSFERASE 23 IU/L (10-42); BILIRUBIN,TOTAL 0.4 mg/dL (0.2-1.0); BUN - BLOOD UREA NITROGEN 15 mg/dL (6-20); CHOL/HDL RATIO 8.7 (<5.0); CHOLESTEROL 269 mg/dL; GFR - MDRD 82 (>89); HDL CHOLESTEROL 31 mg/dL; LDL CHOLESTEROL,CALCULATED 202 mg/dL; LDL/HDL RATIO 6.5 (<3.6); TRIGLYCERIDES 179 mg/dL; VLDL CHOLESTEROL 36 mg/dL
[2022-08-22 15:38] LABS: CALCIUM 9.8 mg/dL (8.5-10.3); CARBON DIOXIDE - CO2 29 mmol/L (21-32); CHLORIDE 104 mmol/L (101-111); GLUCOSE 106 mg/dL (70-100); POTASSIUM 4.5 mmol/L (3.5-5.0); SODIUM 139 mmol/L (135-145)
== END 2022-08-22 07:33 | disposition home or self-care (01) ==
LOC: LAB.S 07:32
PROVIDERS: ATTEND Registered Nurse
DX: I10 Essential (primary) hypertension (principal); E78.5 Hyperlipidemia, unspecified; Z79.899 Other long term (current) drug therapy
CPT/HCPCS: 36415; 80053; 80061; 83721

== ENCOUNTER 2023-02-18 17:09 | Emergency (ER) | payer MEDICAID ==
[2023-02-18 17:28] VITALS: BP 146/88
--- NOTE | 2023-02-18 18:24 | CT Report ---
PROCEDURE: HEAD WO INDICATIONS: fall, head injury, cont MICHELE x 2 days TECHNIQUE: Noncontrast 4.5 mm thick angled axial sections acquired from the foramen magnum to the vertex. For r adiation dose reduction, the following was used: automated exposure control, adjustment of mA and/or kV according to patient size. COMPARISON: 06/14/2020 FINDINGS: Image quality: Excellent. CSF spaces: Basal cisterns are patent. No extra-axial fluid collections. Ventricles are normal in size and shape. Brain: No midline shift. No intracranial masses or hemorrhage. Hernandez-white matter interface is norm al. Skull and face: Calvarium and visualized facial bones are intact, without suspicious lesions. Sinuses: Visualized sinuses and mastoids are clear. IMPRESSION: CT head without acute intracranial abnormalities. No acute calvarial fractures. No mass or mass effec t. Reviewed by: Madhu Lemons MD on 02/18/2023 6:22 PM PDT Approved by: Madhu Lemons MD on 02/18/2023 6:22 PM PDT Station ID: [id number]
--- NOTE | 2023-02-18 18:26 | CT Report ---
PROCEDURE: CERVICAL SPINE WO INDICATIONS: fall, neck pain x 2 days TECHNIQUE: Noncontrast 3 mm thick sections acquired from the skull base to the T4 level. Sagittal and coronal r eformats were then constructed. For radiation dose reduction, the following was used: automated exp osure control, adjustment of mA and/or kV according to patient size. COMPARISON: CT angiogram neck dated 01/05/2019 FINDINGS: Image quality: Diagnostic. Bones: No acute fractures or dislocations. No acute compression fractures of the vertebral bodies. Craniocervical junction is intact. C1-C2 relationship is preserved. Visualized superior ribs are inta ct. Straightening of cervical lordosis. Multilevel cervical spondylosis. Soft tissues: Prevertebral soft tissues are normal in thickness. No paravertebral hematomas. No ap ical pneumothoraces. IMPRESSION: CT cervical spine without acute fracture or traumatic malalignment. Reviewed by: Madhu Lemons MD on 02/18/2023 6:25 PM PDT Approved by: Madhu Lemons MD on 02/18/2023 6:25 PM PDT Station ID: [id number]
--- NOTE | 2023-02-18 18:27 | ED Physician Documentation ---
History of Present Illness - Stated complaint Stated Complaint: HEAD PX/MHE - Chief complaint Chief Complaint: MHE - History obtained from History obtained from: Patient, Family - History of Present Illness Pain level max: 5 Pain level now: 5 - Additonal information Additional information: 42-year-old male brought in by his family. He states that 2 days ago he was at home when he felt lightheaded, dizzy, stood up and fell to the ground striking his head. Unsure if he lost consciousness or not. No fevers. No chills. Has had continued headache since that time. Also has mild neck pain. He states he has a history of schizophrenia and is on 800 mg of Seroquel per day. He states he is having increased auditory and visual hallucinations, he tried to contact his prescriber today to ask about increasing his Seroquel, but no callback was received. He went to the walk-in clinic and then was sent here for further evaluation. He is not suicidal or homicidal. Review of Systems Constitutional: denies: Fever, Chills Throat: denies: Sore throat Cardiac: denies: Chest pain / pressure, Palpitations Respiratory: denies: Cough GI: reports: Vomiting (x1 2 days ago). denies: Abdominal Pain, Diarrhea Skin: denies: Rash Musculoskeletal: denies: Neck pain, Back pain Neurologic: denies: Focal weakness, Numbness, Difficulty speaking, Confused, Altered mental status PD PAST MEDICAL HISTORY - Past Medical History Cardiovascular: None Respiratory: Asthma Endocrine/Autoimmune: None GI: None : None HEENT: None Psych: Anxiety Musculoskeletal: Chronic back pain Derm: None - Past Surgical History Past Surgical History: Yes General: Appendectomy - Present Medications Home Medications: Ambulatory Orders Medication Instructions Recorded Confirmed DULoxetine [Cymbalta] 30 mg PO DAILY 06/14/20 06/14/20 Gabapentin 600 mg PO QPM 06/14/20 06/14/20 diazePAM [Valium] 5 mg PO TID PRN #15 tablet 06/14/20 diphenhydrAMINE [Benadryl] 25 mg PO DAILY PRN 06/14/20 06/14/20 Albuterol Sulf [Ventolin Hfa 1 - 2 puffs INH Q4HR PRN #1 inhaler 06/05/21 Inhaler] HYDROcod/ACETAM 5/325 [Marion 5/325] 1 tablet PO BID PRN #10 tablet 10/26/21 - Allergies Allergies/Adverse Reactions: Allergies Allergy/AdvReac Type Severity Reaction Status Date / Time aspirin Allergy Anaphylaxis Verified 10/26/21 11:03 NSAIDS (Non-Steroidal Allergy Anaphylaxis Verified 10/26/21 11:03 Anti-Inflamma - Social History Does the pt smoke?: No Smoking Status: Never smoker Does the pt drink ETOH?: Yes Does the pt have substance abuse?: No - Immunizations Immunizations are current?: Yes - POLST Patient has POLST: No PD ED PE NORMAL - Vitals Vital signs reviewed: Yes - General General: Alert and oriented X 3, No acute distress - HEENT HEENT: Atraumatic (No scalp hematomas. No palpable skull fractures), PERRL, EOMI, Ears normal, Moist mucous membranes, Pharynx benign, Dentition benign, Other (Slight abrasion to the inner lower lip. Otherwise normal intraoral exam) - Neck Neck: Supple, no meningeal sign, Other (Mild upper C-spine tenderness to palpation. No step-off or deformity) - Cardiac Cardiac: RRR, Strong equal pulses - Respiratory Respiratory: No respiratory distress, Clear bilaterally - Abdomen Abdomen: Normal bowel sounds, Soft, Non tender, Non distended - Back Back: No spinal TTP - Derm Derm: Warm and dry - Extremities Extremities: No tenderness to palpate, Normal ROM s pain - Neuro Neuro: Alert and oriented X 3, public health clinical nurse specialist 2-12 intact, No motor deficit, No sensory deficit, Normal speech Eye Opening: Spontaneous Motor: Obeys Commands Verbal: Oriented GCS Score: 15 - Psych Psych: Normal mood, Normal affect Results - Vitals Vitals: Oxygen O2 Source Room air - Labs Labs: Laboratory Tests 02/18/23 02/18/23 02/18/23 18:35 18:35 19:34 WBC 8.8 RBC 4.87 Hgb 13.9 L Hct 41.5 L MCV 85.2 MCH 28.5 MCHC 33.5 RDW 12.2 Plt Count 287 MPV 10.0 Neut # (Auto) 4.2 Lymph # (Auto) 3.6 H [place] # (Auto) 0.8 Eos # (Auto) 0.3 Baso # (Auto) 0.1 Absolute Nucleated RBC 0.00 Nucleated RBC % 0.0 Sodium 138 Potassium 4.0 Chloride 101 Carbon Dioxide 29 Anion Gap 8.0 BUN 20 Creatinine 1.1 Estimated GFR (MDRD) 74 L Glucose 93 Calcium 9.2 Total Bilirubin 0.3 AST 22 ALT 29 Alkaline Phosphatase 99 Total Protein 6.9 Albumin 4.3 Globulin 2.6 Albumin/Globulin Ratio 1.7 Urine Color YELLOW Urine Clarity CLEAR Urine pH 6.0 Ur Specific [place] 1.015 Urine Protein NEGATIVE Urine Glucose (UA) NEGATIVE Urine Ketones NEGATIVE Urine Occult Blood NEGATIVE Urine Nitrite NEGATIVE Urine Bilirubin NEGATIVE Urine Urobilinogen 0.2 (NORMAL) Ur Leukocyte Esterase NEGATIVE Ur Microscopic Review NOT INDICATED Urine Culture Comments NOT INDICATED Urine Opiates Screen NEGATIVE Ur Oxycodone Screen NEGATIVE Urine Methadone Screen NEGATIVE Ur Propoxyphene Screen NEGATIVE Ur Barbiturates Screen NEGATIVE Ur Tricyclics Screen POSITIVE H Ur Phencyclidine Scrn NEGATIVE Ur Amphetamine Screen NEGATIVE U Methamphetamines Scrn NEGATIVE U Benzodiazepines Scrn NEGATIVE Urine Cocaine Screen NEGATIVE U Cannabinoids Screen POSITIVE H - Rads (name of study) head ct Relevant Findings:: Final report received, See rad report PD Medical Decision Making - ED course Complexity details: reviewed results, re-evaluated patient, considered differential, d/w patient ED course: No acute findings on head CT. We will treat as closed head injury. Telepsychiatry was consulted, after several hours there was no callback received. The patient decided he did not want to wait any longer and wanted to leave the emergency department. He contracts for safety. He will contact his prescriber in the morning. CBC, chemistry, urinalysis does not show any acute abnormalities. Toxicology is positive for cannabinoids and tricyclics. Patient counseled regarding signs and symptoms for which I believe and urgent re- evaluation would be necessary. Patient with good understanding of and agreement to plan and is comfortable going home at this time This document was made in part using voice recognition software. While efforts are made to proofread this document, sound alike and grammatical errors may occur. Departure - Departure Disposition: 01 Home, Self Care Clinical Impression: Closed head injury Qualifiers: Encounter type: initial encounter Qualified Code(s): S09.90XA - Unspecified injury of head, initial encounter Schizophrenia Qualifiers: Schizophrenia type: unspecified Qualified Code(s): F20.9 - Schizophrenia, unspecified Condition: Good Instructions: ED Head Injury Closed, ED Schizophrenia General Follow-Up: Katus,Randee, [employer] SUPERVISOR [Primary Care Provider] - Tomorrow Comments: You need to contact your primary care provider tomorrow as well as your psychiatrist to discuss changing your medications. Your head CT and laboratory testing today do not show any acute abnormalities. You have chosen not to wait for a telepsychiatry consult tonight. Please continue your current medications as prescribed. Crisis Line and is available to talk to someone [email or web address] is also available to chat with someone online if you prefer. There are also many resources on this website and apps for your phone to help with your mental health You can also text the word START to [phone] to chat with someome via text. Discharge Date/Time: 02/18/23 21:51
[2023-02-18 18:40] LABS: BASOPHILS # (AUTO) 0.1 10^3/uL (0.0-0.1); BASOPHILS % (AUTO) 0.7 %; EOSINOPHILS # (AUTO) 0.3 10^3/uL (0.0-0.7); EOSINOPHILS % (AUTO) 3.1 %; HCT - HEMATOCRIT 41.5 % (42.0-52.0); HGB - HEMOGLOBIN 13.9 g/dL (14.0-18.0); LYMPHOCYTES # (AUTO) 3.6 10^3/uL (1.5-3.5); LYMPHOCYTES % (AUTO) 40.2 %; MEAN CORPUSCULAR HEMOGLOBIN 28.5 pg (27.0-31.0); MEAN CORPUSCULAR HGB CONC 33.5 g/dL (32.0-36.0); MEAN CORPUSCULAR VOLUME 85.2 fL (80.0-94.0); MONOCYTES # (AUTO) 0.8 10^3/uL (0.0-1.0); MONOCYTES % (AUTO) 8.5 %; NEUTROPHILS # (AUTO) 4.2 10^3/uL (1.5-6.6); NEUTROPHILS % (AUTO) 47.4 %; PLT - PLATELET COUNT 287 10^3/uL (130-450); RED BLOOD COUNT 4.87 10^6/uL (4.70-6.10); RED CELL DISTRIBUTION WIDTH 12.2 % (12.0-15.0); WHITE BLOOD COUNT 8.8 x10^3/uL (4.8-10.8)
[2023-02-18 18:53] LABS: ALBUMIN 4.3 g/dL (3.2-5.5); ALBUMIN/GLOBULIN RATIO 1.7 (1.0-2.2); BILIRUBIN,TOTAL 0.3 mg/dL (0.2-1.0); CALCIUM 9.2 mg/dL (8.5-10.3); CREATININE 1.1 mg/dL (0.6-1.2); TOTAL PROTEIN 6.9 g/dL (6.7-8.2)
[2023-02-18 19:56] LABS: MUDS CUTOFF CONCENTRATIONS CUTOFF CONC BELOW:
[2023-02-18 20:01] LABS: BILIRUBIN,URINE NEGATIVE (NEGATIVE); GLUCOSE, URINE (UA) NEGATIVE (NEGATIVE); KETONES,URINE (UA) NEGATIVE (NEGATIVE); LEUKOCYTE ESTERASE, URINE NEGATIVE (NEGATIVE); NITRITE,URINE NEGATIVE (NEGATIVE); OCCULT BLOOD,URINE NEGATIVE (NEGATIVE); PROTEIN,URINE NEGATIVE (NEGATIVE); UROBILINOGEN,URINE 0.2 (NORMAL) E.U./dL (NORMAL)
[2023-02-18 20:03] LABS: CLARITY,URINE CLEAR (CLEAR)
[2023-02-18 20:16] LABS: AMPHETAMINE SCREEN,URINE NEGATIVE (NEGATIVE); BARBITURATE SCREEN,UR NEGATIVE (NEGATIVE); BENZODIAZEPINES SCREEN, URINE NEGATIVE (NEGATIVE); COCAINE SCREEN URINE NEGATIVE (NEGATIVE); METHADONE SCREEN, URINE NEGATIVE (NEGATIVE); METHAMPHETAMINES SCREEN, URINE NEGATIVE (NEGATIVE); OPIATE SCREEN, URINE NEGATIVE (NEGATIVE); OXYCODONE SCREEN, URINE NEGATIVE (NEGATIVE); PROPOXYPHENE SCREEN, URINE NEGATIVE (NEGATIVE); THC CANNABINOID SCREEN, URINE POSITIVE (NEGATIVE); TRICYCLIC ANTIDEPRESSANT,URINE POSITIVE (NEGATIVE)
== END 2023-02-18 21:51 | disposition home or self-care (01) ==
LOC: ED 17:09
DX: S09.90XA Unspecified injury of head, initial encounter (principal); W19.XXXA Unspecified fall, initial encounter; F20.9 Schizophrenia, unspecified; Z79.899 Other long term (current) drug therapy
CPT/HCPCS: 36415; 80053; 80306; 81001; 81003; 85025; 87086; 99283; 99284

== ENCOUNTER 2023-09-29 08:47 | Outpatient (CLI) | payer MEDICAID ==
--- NOTE | 2023-09-29 11:47 | MRI Report ---
PROCEDURE: LUMBAR SPINE WO INDICATIONS: BACK PAIN TECHNIQUE: Noncontrast sagittal T1 spin echo and T2 fast echo, sagittal STIR, axial T1 and T2 fast spin echo thr ough the lumbar spine. In cases with scoliosis, additional coronal T2 fast spin echo may be performe d. COMPARISON: None. FINDINGS: Image quality: Excellent. Alignment and Curvature: There is normal bony alignment. Bone Marrow: Marrow is of normal overall signal. No acute vertebral body compression fractures. Spinal Cord: Conus medullaris terminates at the L1 level. Visualized cord demonstrates normal signa l and size. Paraspinous Soft Tissues: No paravertebral masses. T12-L1: Normal in appearance. L1-L2: Normal in appearance. L2-L3: Minimal broad-based disc bulge. L3-L4: Broad-based disc bulge, epidural lipomatosis, ligamentum flavum and facet hypertrophy with f acet arthrosis. This results in mild spinal canal narrowing and mild right neural foraminal narrowing . L4-L5: Asymmetric right foraminal disc bulge, epidural lipomatosis, ligamentum flavum and facet hyp ertrophy with facet arthrosis. This results in moderate to severe spinal canal narrowing and mild rig ht neural foraminal narrowing. L5-S1: Broad-based disc bulge with disc osteophyte complex and annular fissure. Mild facet arthrosi s and hypertrophy. Ligament flavum hypertrophy. This results in [id number]-km-[id number] neural foraminal andrew rowing. IMPRESSION: Multilevel degenerative disc disease and facet arthrosis, as above. Of note, there is moderate to sev ere spinal canal narrowing at L4-5 due to degenerative change and superimposed asymmetric disc bulge extending into the right foraminal space. Reviewed by: Terry Perales on 09/29/2023 11:46 AM PST Approved by: Terry Perales on 09/29/2023 11:46 AM PST Station ID: [id number]
== END 2023-09-29 08:48 | disposition home or self-care (01) ==
LOC: DI 08:47
PROVIDERS: ATTEND Nurse Practitioner Acute Care
DX: M51.16 Intervertebral disc disorders with radiculopathy, lumbar region (principal); M47.26 Other spondylosis with radiculopathy, lumbar region; M48.061 Spinal stenosis, lumbar region without neurogenic claudication; M51.17 Intervertebral disc disorders with radiculopathy, lumbosacral region; M47.27 Other spondylosis with radiculopathy, lumbosacral region; M48.07 Spinal stenosis, lumbosacral region
CPT/HCPCS: 87070

== ENCOUNTER 2023-09-30 08:00 | Outpatient (CLI) | payer MEDICAID | END 2023-09-30 23:59 | disposition home or self-care (01) | LOC: LAB.S 08:00 | PROVIDERS: ATTEND Emergency Medicine | DX: J06.9 Acute upper respiratory infection, unspecified (principal) | CPT/HCPCS: 87070 ==

== ENCOUNTER 2023-10-01 12:30 | Emergency (ER) | payer MEDICAID ==
[2023-10-01 12:57] VITALS: BP 132/80; O2SAT 98
[2023-10-01] MEDS ORDERED: LORazepam 2 MG/ML VIAL IM STA (15:01)
--- NOTE | 2023-10-01 15:01 | ED Physician Documentation ---
History of Present Illness - Stated complaint Stated Complaint: RESTLESS/AGITATED - Chief complaint Chief Complaint: General - History obtained from History obtained from: Patient - Additonal information Additional information: 43-year-old gentleman with schizophrenia maintained on duloxetine, Latuda, and Seroquel. For unclear reasons starting yesterday morning he feels more agitated than normal. He has tried taking extra Vistaril and Seroquel without relief. Feels like he needs to walk all the time and cannot rest. He does have diffuse muscle pain related to overactivity from this. No SI or HI. PD PAST MEDICAL HISTORY - Past Medical History Past Medical History: Yes Cardiovascular: Hypertension, High cholesterol Respiratory: Asthma Neuro: None Endocrine/Autoimmune: None GI: None : None HEENT: None Psych: Anxiety, Schizophrenia Musculoskeletal: Chronic back pain Derm: None - Past Surgical History Past Surgical History: Yes General: Appendectomy - Present Medications Home Medications: Ambulatory Orders Medication Instructions Recorded Confirmed DULoxetine [Cymbalta] 60 mg PO DAILY 06/14/20 10/01/23 Albuterol Sulf [Ventolin Hfa 1 - 2 puffs INH Q4HR PRN #1 inhaler 06/05/21 10/01/23 Inhaler] Atorvastatin Calcium [Lipitor] 80 mg PO HS 10/01/23 10/01/23 LORazepam [Ativan] 1 - 2 mg PO TID PRN #20 tablet 10/01/23 Losartan Potassium 25 mg PO DAILY 10/01/23 10/01/23 Lurasidone HCl [Latuda] 50 mg PO DAILY 10/01/23 10/01/23 Quetiapine Fumarate [Quetiapine 200 mg PO BID 10/01/23 10/01/23 Fumarate ER] Quetiapine Fumarate [Seroquel Xr] 400 mg PO HS 10/01/23 10/01/23 Quetiapine Fumarate [Seroquel] 100 mg PO BID PRN 10/01/23 10/01/23 hydrOXYzine HCL [Hydroxyzine HCl] 50 mg PO BID 10/01/23 10/01/23 - Allergies Allergies/Adverse Reactions: Allergies Allergy/AdvReac Type Severity Reaction Status Date / Time aspirin Allergy Anaphylaxis Verified 10/01/23 12:37 NSAIDS (Non-Steroidal Allergy Anaphylaxis Verified 10/01/23 12:37 Anti-Inflamma - Social History Does the pt smoke?: No Smoking Status: Former smoker Does the pt drink ETOH?: No Does the pt have substance abuse?: Yes Substance Use and Type: CBD oil / Products - Immunizations Immunizations are current?: Yes - POLST Patient has POLST: No PD ED PE NORMAL - Vitals Vital signs reviewed: Yes - General General: Alert and oriented X 3, Other (He is jittery but can calm it down. He has normal lower extremity reflexes and no clonus at the ankles) - Cardiac Cardiac: RRR, No murmur - Respiratory Respiratory: No respiratory distress, Clear bilaterally - Abdomen Abdomen: Non tender - Neuro Neuro: Alert and oriented X 3, Normal speech - Psych Psych: Normal mood, Normal affect, Other (Does not appear manic.) Results - Vitals Vitals: Vital Signs - 24 hr 10/01/23 12:42 Temperature 37.3 C Heart Rate 106 H Respiratory 18 Rate Blood Pressure 132/80 H O2 Saturation 98 Oxygen O2 Source Room air - Labs Labs: Laboratory Tests 10/01/23 15:09 Sodium 138 Potassium 4.2 Chloride 105 Carbon Dioxide 25 Anion Gap 8.0 BUN 13 Creatinine 0.9 Estimated GFR (MDRD) 93 Glucose 99 Calcium 10.0 Total Creatine Kinase 578 H PD Medical Decision Making - ED course ED course: He presents with a restless akathisia in the setting of psychiatric polypharmacy. After the administration of 2 mg of Ativan he was feeling much better. Given his restlessness I did check a CK which was modestly elevated but should respond to oral fluids. Departure - Departure Disposition: Home, Self Care Clinical Impression: Akathisia Condition: Good Record reviewed to determine appropriate education?: Yes Prescriptions: LORazepam [Ativan] 1 - 2 mg PO TID PRN #20 tablet PRN Reason: Anxiety Comments: I sent a prescription to [facility] for the same medication we gave you here. Return if worse. Do not drink or drive while taking this medication. Follow-up with your psychiatrist on Friday as scheduled. Forms: PCP List
[2023-10-01 15:31] LABS: CREATININE 0.9 mg/dL (0.6-1.3); POTASSIUM 4.2 mmol/L (3.5-4.5)
== END 2023-10-01 16:33 | disposition home or self-care (01) ==
LOC: ED 12:30
DX: G25.71 Drug induced akathisia (principal); F20.9 Schizophrenia, unspecified; I10 Essential (primary) hypertension; Z87.891 Personal history of nicotine dependence
CPT/HCPCS: 36415; 80048; 82550; 96372; 99283; J2060

== ENCOUNTER 2023-10-08 08:07 | Outpatient (CLI) | payer MEDICAID ==
[2023-10-08 08:27] LABS: BASOPHILS % (AUTO) 0.5 %; EOSINOPHILS # (AUTO) 0.2 10^3/uL (0.0-0.7); EOSINOPHILS % (AUTO) 2.1 %; HCT - HEMATOCRIT 41.5 % (42.0-52.0); HGB - HEMOGLOBIN 13.9 g/dL (14.0-18.0); LYMPHOCYTES # (AUTO) 2.3 10^3/uL (1.5-3.5); LYMPHOCYTES % (AUTO) 29.9 %; MEAN CORPUSCULAR HEMOGLOBIN 28.8 pg (27.0-31.0); MEAN CORPUSCULAR HGB CONC 33.5 g/dL (32.0-36.0); MEAN CORPUSCULAR VOLUME 85.9 fL (80.0-94.0); MEAN PLATELET VOLUME 10.3 fL (7.4-11.4); MONOCYTES # (AUTO) 0.6 10^3/uL (0.0-1.0); MONOCYTES % (AUTO) 7.4 %; NEUTROPHILS # (AUTO) 4.5 10^3/uL (1.5-6.6); NEUTROPHILS % (AUTO) 59.8 %; PLT - PLATELET COUNT 299 10^3/uL (130-450); RED BLOOD COUNT 4.83 10^6/uL (4.70-6.10); RED CELL DISTRIBUTION WIDTH 12.1 % (12.0-15.0); WHITE BLOOD COUNT 7.6 x10^3/uL (4.8-10.8)
[2023-10-08 08:51] LABS: CHOL/HDL RATIO 4.3 (<5.0); CHOLESTEROL 98 mg/dL; HDL CHOLESTEROL 23 mg/dL; LDL CHOLESTEROL,CALCULATED 50 mg/dL; LDL/HDL RATIO 2.2 (<3.6); TRIGLYCERIDES 126 mg/dL (48-352); VLDL CHOLESTEROL 25 mg/dL
[2023-10-08 12:07] LABS: ESTIMATED AVERAGE GLUCOSE 108 mg/dL (70-100); HEMOGLOBIN A1c% 5.4 % (4.27-6.07)
== END 2023-10-08 08:08 | disposition home or self-care (01) ==
LOC: LAB 08:07
PROVIDERS: ATTEND Nurse Practitioner Psychiatric/Mental Health
DX: F20.9 Schizophrenia, unspecified (principal); F43.23 Adjustment disorder with mixed anxiety and depressed mood
CPT/HCPCS: 36415; 80061; 81599; 83036; 83721; 85025

== ENCOUNTER 2023-12-08 08:02 | Outpatient (CLI) | payer MEDICAID | END 2023-12-08 08:03 | disposition home or self-care (01) | LOC: LAB 08:02 | PROVIDERS: ATTEND Nurse Practitioner Psychiatric/Mental Health | DX: F20.9 Schizophrenia, unspecified (principal); Z79.899 Other long term (current) drug therapy | CPT/HCPCS: 81599 ==

== ENCOUNTER 2024-02-06 08:12 | Outpatient (CLI) | payer MEDICAID | END 2024-02-06 08:13 | disposition home or self-care (01) | LOC: LAB 08:12 | PROVIDERS: ATTEND Nurse Practitioner Psychiatric/Mental Health | DX: F20.9 Schizophrenia, unspecified (principal); F43.23 Adjustment disorder with mixed anxiety and depressed mood; Z79.899 Other long term (current) drug therapy | CPT/HCPCS: 81599 ==

== ENCOUNTER 2024-02-10 17:41 | Outpatient (CLI) | payer MEDICAID | END 2024-02-10 17:42 | disposition home or self-care (01) | LOC: LAB 17:41 | PROVIDERS: ATTEND Nurse Practitioner Psychiatric/Mental Health | DX: F20.9 Schizophrenia, unspecified (principal); F43.23 Adjustment disorder with mixed anxiety and depressed mood; Z79.899 Other long term (current) drug therapy | CPT/HCPCS: 81599 ==

== ENCOUNTER 2024-07-09 10:01 | Outpatient (CLI) | payer MEDICAID ==
[2024-07-09 10:29] LABS: CHOL/HDL RATIO 3.2 (<5.0); CHOLESTEROL 101 mg/dL; HDL CHOLESTEROL 32 mg/dL; LDL CHOLESTEROL,CALCULATED 47 mg/dL; LDL/HDL RATIO 1.5 (<3.6); TRIGLYCERIDES 108 mg/dL; VLDL CHOLESTEROL 22 mg/dL
[2024-07-09 12:26] LABS: ESTIMATED AVERAGE GLUCOSE 111 mg/dL (70-100); HEMOGLOBIN A1c% 5.5 % (4.27-6.07)
== END 2024-07-09 10:02 | disposition home or self-care (01) ==
LOC: LAB 10:01
PROVIDERS: ATTEND Nurse Practitioner Psychiatric/Mental Health
DX: F20.9 Schizophrenia, unspecified (principal); Z79.899 Other long term (current) drug therapy
CPT/HCPCS: 36415; 80061; 83036; 83721